=== PATIENT | female | born 1980 | race Caucasian/White ===

== ENCOUNTER → 2018-04-19 | Outpatient (REF) ==
[~2018-04-19] MED LIST: CTRZ10T PO
--- NOTE | 2018-04-19 14:24 | Diagnostic Imaging Report ---
INDICATION: Pain status post injury. Comparison: None Findings: 3 radiographic views left ankle were obtained. There is small well-corticated extraosseous calcification along the distal margins of the fibula consistent with probable old injury. There is however no evidence acute fracture or dislocation in the left ankle on today's study. Osseous structures are otherwise intact. Joint spaces are maintained. Soft tissue structures are grossly unremarkable. No unexpected foreign bodies are identified. IMPRESSION: 1. Probable old avulsion fracture of the distal left fibula. 2. No evidence of acute fracture or dislocation left ankle. Dictated by: Dictated on workstation # [id number]
--- NOTE | 2018-04-19 14:25 | Diagnostic Imaging Report ---
INDICATION: Foot pain and swelling COMPARISON: None. FINDINGS: 3 views of the left foot demonstrate no acute fracture or dislocation. There are no focal osseous lesions. There is no soft tissue swelling. Joint spaces are well maintained. No radiopaque foreign bodies are seen. IMPRESSION: No acute fractures or dislocations of the left foot. Dictated by: Dictated on workstation # [id number]
== END | disposition home or self-care (01) ==
LOC: RAD 13:44
PROVIDERS: ATTEND Nurse Practitioner Family
CPT/HCPCS: 73610; 73630